=== PATIENT | male | born 1995 | race Hispanic/Latino ===

== ENCOUNTER 2017-04-05 15:39 | Inpatient (IN) | payer OTHER ==
[~2017-04-05] VITALS: Ht 177.8 cm; Wt 57.5 kg
[2017-04-05 16:47] LABS: BASOPHILS % (AUTO) 1.8 % (0.0-5.0); EOSINOPHILS % (AUTO) 1.8 % (0.0-8.0); HEMATOCRIT 36.5 % (42-54); LYMPHOCYTES % (AUTO) 25.1 % (21.0-51.0); MEAN CORPUSCULAR HEMOGLOBIN 32.1 pg (27.0-33.0); MEAN CORPUSCULAR HGB CONC 34.9 g/dL (32.0-36.0); MEAN CORPUSCULAR VOLUME 92.2 fL (80-100); MONOCYTES % (AUTO) 8.4 % (3.0-13.0); NEUTROPHILS % (AUTO) 62.9 % (40.0-77.0); PLATELET COUNT (AUTO) 356 K/uL (130-400); RED BLOOD CELL COUNT(AUTO) 3.96 MIL/uL (4.50-6.20); RED CELL DISTRIBUTION WIDTH 12.7 % (11.0-15.5); WHITE BLOOD COUNT (AUTO) 6.5 K/uL (4.8-10.8)
[2017-04-05 16:53] LABS: CREATININE 0.9 mg/dL (0.5-1.5); POTASSIUM 3.8 mmol/L (3.5-5.1)
[2017-04-05 16:58] LABS: BILIRUBIN,DIRECT 0.1 mg/dL (0.0-0.3); BILIRUBIN,TOTAL 0.3 mg/dL (0.2-1.0); TOTAL PROTEIN, SERUM 6.2 g/dL (6.0-8.3)
[2017-04-05] MEDS ORDERED: CLINDAMYCIN 600 MG/D5% WATER 50 ML IV ONE (17:22)
[2017-04-05] MEDS ORDERED: ZOSYN 3.375GM+NS 50ML 50 ML IV ONE (17:59)
[2017-04-05] MEDS ORDERED: VANCOMYCIN 1GM+NS 250ML 250 ML IV ONE (17:59)
[2017-04-06] MEDS ORDERED: ZOSYN 3.375GM+NS 50ML 50 ML IV ONE ×3 (03:12→16:15)
[2017-04-06] MEDS ORDERED: CEPH-578 PO (10:16)
[2017-04-06] MEDS ORDERED: SULF1TAB42 PO (10:27)
[2017-04-06] MEDS ORDERED: LORA1TAB3 PO (10:27)
[2017-04-06] MEDS ORDERED: CLOT15CR62 TP (10:27)
[2017-04-06] MEDS ORDERED: CLIN300C9 PO (10:27)
[2017-04-06] MEDS ORDERED: PIPE59SH TP (10:28)
[2017-04-06 15:20] VITALS: BP 121/76
[2017-04-06] MEDS ORDERED: VANCOMYCIN PROTOCOL PER PHARMACY IV SCH (16:15)
[2017-04-06] MEDS ORDERED: ONDANSETRON HCL 4 MG/2 ML VIAL IVP PRN (16:15)
[2017-04-06] MEDS: SODIUM CHLORIDE 0.9% 1000ML 1,000 ML IV SCH (16:33)
[2017-04-06] MEDS: ZOSYN 3.375GM+NS 50ML 50 ML IV SCH (17:34)
[2017-04-06] MEDS ORDERED: DiphenhydrAMINE HCL 50 MG/ML VIAL ONE (19:37)
[2017-04-06] MEDS ORDERED: HALOPERIDOL LACTATE 5 MG/ML VIAL ONE (19:37)
[2017-04-06] MEDS ORDERED: HALOPERIDOL DECANOATE 100 MG/ML ML IM ONE (19:45)
[2017-04-06] MEDS ORDERED: DiphenhydrAMINE HCL 50 MG/ML VIAL IM SCH (19:45)
[2017-04-06] MEDS: VANCOMYCIN 1GM+NS 250ML 250 ML IV SCH (19:55)
[2017-04-06 19:57] VITALS: BP 133/56
[2017-04-06 23:56] VITALS: BP 114/57
[2017-04-07] MEDS: ZOSYN 3.375GM+NS 50ML 50 ML IV SCH ×3 (01:50→18:08)
[2017-04-07] MEDS: SODIUM CHLORIDE 0.9% 1000ML 1,000 ML IV SCH ×2 (03:12→12:15)
[2017-04-07 04:04] VITALS: BP 120/73
[2017-04-07 08:22] VITALS: BP 123/72
[2017-04-07] MEDS: FAMOTIDINE 20MG TAB 20 MG TAB PO SCH ×2 (09:00→21:00)
[2017-04-07] MEDS: ENOXAPARIN SODIUM 30 MG/0.3 ML SQ SCH (10:56)
[2017-04-07] MEDS: VANCOMYCIN 1GM+NS 250ML 250 ML IV SCH ×2 (11:02→20:46)
[2017-04-07 11:31] VITALS: BP 119/59
[2017-04-07] MEDS: LORAZEPAM 2 MG/ML 1 ML VIAL IM PRN (14:25)
[2017-04-07 15:42] VITALS: BP 117/64
[2017-04-07] MEDS ORDERED: HALOPERIDOL LACTATE 5 MG/ML VIAL IM SCH (18:15)
[2017-04-07 20:16] VITALS: BP 103/48
[2017-04-07 23:30] VITALS: BP 110/47
[2017-04-08] MEDS: LORAZEPAM 2 MG/ML 1 ML VIAL IM PRN (01:43)
[2017-04-08] MEDS: ZOSYN 3.375GM+NS 50ML 50 ML IV SCH ×3 (01:56→18:01)
[2017-04-08 04:23] VITALS: BP 108/42
[2017-04-08] MEDS: SODIUM CHLORIDE 0.9% 1000ML 1,000 ML IV SCH ×2 (08:15→10:10)
[2017-04-08 09:00] VITALS: BP 97/63
[2017-04-08] MEDS: FAMOTIDINE 20MG TAB 20 MG TAB PO SCH ×2 (10:10→21:00)
[2017-04-08] MEDS: HALOPERIDOL LACTATE 5 MG/ML VIAL IM SCH ×4 (10:10→21:03)
[2017-04-08] MEDS: VANCOMYCIN 1GM+NS 250ML 250 ML IV SCH ×2 (10:14→21:03)
[2017-04-08] MEDS: ENOXAPARIN SODIUM 30 MG/0.3 ML SQ SCH (10:15)
[2017-04-08 11:46] VITALS: BP 110/65
[2017-04-08 15:47] VITALS: BP 110/67
[2017-04-08 19:40] VITALS: BP 120/66
[2017-04-08 23:54] VITALS: BP 119/55
[2017-04-09] MEDS: HALOPERIDOL LACTATE 5 MG/ML VIAL IM SCH ×6 (01:27→20:00)
[2017-04-09] MEDS: ZOSYN 3.375GM+NS 50ML 50 ML IV SCH ×3 (02:01→18:01)
[2017-04-09] MEDS: SODIUM CHLORIDE 0.9% 1000ML 1,000 ML IV SCH ×3 (04:15→14:15)
[2017-04-09 04:33] VITALS: BP 121/56
[2017-04-09] MEDS: LORAZEPAM 2 MG/ML 1 ML VIAL IM PRN (07:40)
[2017-04-09] MEDS: ENOXAPARIN SODIUM 30 MG/0.3 ML SQ SCH (07:41)
[2017-04-09] MEDS: VANCOMYCIN 1GM+NS 250ML 250 ML IV SCH ×2 (07:42→20:51)
[2017-04-09] MEDS: FAMOTIDINE 20MG TAB 20 MG TAB PO SCH ×2 (07:54→20:50)
[2017-04-09 08:11] VITALS: BP 125/55
[2017-04-09 11:10] VITALS: BP 105/59
[2017-04-09 16:40] VITALS: BP 119/62
[2017-04-09 20:24] VITALS: BP 99/57
[2017-04-09 23:44] VITALS: BP 112/57
[2017-04-10] MEDS: HALOPERIDOL LACTATE 5 MG/ML VIAL IM SCH ×4 (00:09→12:00)
[2017-04-10] MEDS: ZOSYN 3.375GM+NS 50ML 50 ML IV SCH ×2 (02:41→11:06)
[2017-04-10] MEDS: SODIUM CHLORIDE 0.9% 1000ML 1,000 ML IV SCH ×2 (02:41→10:15)
[2017-04-10 05:02] VITALS: BP 109/56
[2017-04-10 07:00] VITALS: BP 109/63
[2017-04-10 11:00] VITALS: BP 108/63
[2017-04-10] MEDS: FAMOTIDINE 20MG TAB 20 MG TAB PO SCH (11:05)
[2017-04-10] MEDS: ENOXAPARIN SODIUM 30 MG/0.3 ML SQ SCH (11:06)
[2017-04-10] MEDS ORDERED: COMPOUND IV REFRIGERATED 1 EACH IVSOLN MISC PRN (12:15)
[2017-04-10] MEDS ORDERED: VANCOMYCIN 1.25 GM in SODIUM CHLORIDE 0.9% 250 ML IV SCH (13:00)
[2017-04-10 16:00] VITALS: BP 110/63
[2017-04-10] MEDS ORDERED: PIPERACILLIN SODIUM/TAZOBACTAM 3.375 GM VIAL IV SCH (16:00)
== END 2017-04-10 17:35 | DRG 383 ==
LOC: EDH 15:39 → EDHIP 15:40 → 3AH 04-06 14:40
PROVIDERS: ADMIT Family Medicine; ATTEND Family Medicine
DX: L03.115 Cellulitis of right lower limb (principal); F20.9 Schizophrenia, unspecified; L03.116 Cellulitis of left lower limb; D64.9 Anemia, unspecified; Z91.5 Personal history of self-harm; F43.22 Adjustment disorder with anxiety; F12.10 Cannabis abuse, uncomplicated; F39 Unspecified mood [affective] disorder; F32.9 Major depressive disorder, single episode, unspecified; Z28.21 Immunization not carried out because of patient refusal
CPT/HCPCS: 36415; 80048; 80076; 80202; 85025; J1200; J1630; J1650; J2060; J2543; J3370; J3490; J7030